=== PATIENT | female | born 1970 | race African-American/Black ===

== ENCOUNTER → 2016-08-31 | Outpatient (CLI) | payer BC ==
[~2016-08-31] MED LIST: ADAP0.1C5 TOP; FING1CAP PO; MINO100C22 PO; MULTTAB58 PO
--- NOTE | 2016-08-31 13:34 | MAMMOGRAPHY REPORT ---
BILATERAL DIGITAL SCREENING MAMMOGRAM TOMOSYNTHESIS WITH CAD: 08/31/2016 CLINICAL HISTORY: Routine screening. Patient has no complaints. TECHNIQUE: Breast tomosynthesis in addition to standard 2D mammography was performed. Current study was also evaluated with a Computer Aided Detection (CAD) system. COMPARISON: Comparison is made to exams dated: 08/28/2015 mammogram, 08/15/2012 mammogram, 07/24/2014 m ammogram, 04/24/2015 mammogram, 03/19/2015 ultrasound, and 03/03/2015 ultrasound - [facility]. BREAST COMPOSITION: There are scattered areas of fibroglandular density in both breasts. There are mild involutional changes in the breasts compared to prior mammograms. FINDINGS: There are stable bilateral benign-appearing coarse and round calcifications. Expected arc hitectural distortion in the 9:00 right breast from previous abscess incision and drainage. No new suspicious mass, architectural distortion or cluster of suspicious microcalcifications is seen. IMPRESSION: ACR BI-RADS CATEGORY 1: NEGATIVE There is no mammographic evidence of malignancy. A 1 year screening mammogram is recommended. The p atient will receive written notification of the results. Approximately 10% of breast cancers are not detected with mammography. A negative mammographic repor t should not delay biopsy if a clinically suggestive mass is present. Sarah Rowe M.D. ay/:08/31/2016 13:06:47 Frit Mixer And Burner: Gali BARBOZA)([place]), [facility] letter sent: Normal 1/2 BI-RADS Code: ACR BI-RADS Category 1: Negative
== END | disposition home or self-care (01) ==
LOC: C.MAMM 07:11
PROVIDERS: ATTEND Family Medicine
DX: Z12.31 Encounter for screening mammogram for malignant neoplasm of breast (principal)

== ENCOUNTER → 2017-01-27 | Day surgery (SDC) | payer BC ==
[2017-01-23 10:09] VITALS: BMI 38.0
[~2017-01-27] VITALS: Ht 162.6 cm; Wt 100.0 kg
[~2017-01-27] MED LIST changes: +LIDOCAINE HCL 2% 2 ML VIAL (20MG/ML) ONE; +PROPOFOL IV EMULSION 10 MG/ML 20 ML VIAL IV ONE
[2017-01-27 14:16] VITALS: Ht 162.6 cm; Wt 100.0 kg
--- NOTE | 2017-01-27 15:00 | Endo History and Physical ---
History & Physical Date of Service: Jan 27, 2017. Chief Complaint: hx Barretts esophagus Referring Physician: Dr. Escobar History of Present Illness For EGD Past Surgical History Hx Cardiac Surgery: No Hx Internal Defibrillator: No Hx Pacemaker: No Hx Abdominal Surgery: Yes (KIKE, ERAN, OVARIAN TUMOR REMOVAL, APPY, TUBAL LIGATION) Hx of Implantable Prosthesis: No Hx Post-Op Nausea and Vomiting: Yes Hx Cancer Surgery: No Hx Thoracic Surgery: No Hx Orthopedic: No Hx Urinary Tract Surgery: No Family History None Social History Smoking Status: Never Smoker Hx Substance Use: No Hx Alcohol Use: Yes (OCCASIONALLY) Allergies Coded Allergies: Erythromycin (Verified Allergy, Unknown, RASH, 01/27/17) Latex1 -Allergic Contact Dermititis (Verified Allergy, Unknown, 01/27/17) Ethinyl Estradiol (Verified Adverse Reaction, Intermediate, ORAL CONTRACEPTIVES-BLOOD CLOTS, 01/27/17) Norgestrel (Verified Adverse Reaction, Intermediate, ORAL CONTRACEPTIVES- BLOOD CLOTS, 01/27/17) Aspirin (Verified Adverse Reaction, Mild, DIZZINESS, RINGING IN EARS, 01/27) Uncoded Allergies: HORSES (Allergy, Severe, ANAPHYLAXIS, 12/26/15) STRAWBERRIES (Allergy, Severe, ANAPHYLAXIS, 12/26/15) Current Medications Reported Home Medications Medications Dose Route/Sig Max Daily Dose Days Date Category Dose Instructions Minocin (Minocycline HCl) 100 Mg Cap 100 Mg PO BID 12/26/15 Reported Differin (Adapalene) 0.1 % Cre 1 Appln TOP HS 30 12/26/15 Reported APPLY TO FACE/CHEST Gilenya (Fingolimod Hcl) 0.5 Mg Cap 0.5 Mg PO QAM 07/01/15 Reported Multivitamin (Multiple Vitamin) 1 Tab Tab 1 Tab PO QAM 05/02/12 Reported Vital Signs Weight (Kilograms): 100.00 Height (Feet): 5 Height (Inches): 4 Date Time Temp Pulse Resp B/P (MAP) Pulse Ox O2 Delivery O2 Flow Rate FiO2 01/27/17 14:23 36.6 64 20 162/105 (124) 98 Room Air Physical Exam General Appearance: + obese Respiratory/Chest: Respiratory effort: no dyspnea Cardiovascular: Heart Auscultation: RRR Abdomen: Inspection & Palpation: soft Assessment and Plan Montgomery's for EGD
--- NOTE | 2017-01-27 15:12 | Discharge Instructions ---
Endoscopy Patient Instructions Date / Procedure(s) Performed Jan 27, 2017. EGD Allergy Information Coded Allergies: Erythromycin (Verified Allergy, Unknown, RASH, 01/27/17) Latex1 -Allergic Contact Dermititis (Verified Allergy, Unknown, 01/27/17) Ethinyl Estradiol (Verified Adverse Reaction, Intermediate, ORAL CONTRACEPTIVES-BLOOD CLOTS, 01/27/17) Norgestrel (Verified Adverse Reaction, Intermediate, ORAL CONTRACEPTIVES- BLOOD CLOTS, 01/27/17) Aspirin (Verified Adverse Reaction, Mild, DIZZINESS, RINGING IN EARS, 01/27) Uncoded Allergies: HORSES (Allergy, Severe, ANAPHYLAXIS, 12/26/15) STRAWBERRIES (Allergy, Severe, ANAPHYLAXIS, 12/26/15) Discharge Date / Findings Jan 27, 2017. Hiatal hernia Medication Instructions Restart Stopped Medication(s): resume meds Reported Home Medications Medications Dose Route/Sig Max Daily Dose Days Date Category Dose Instructions Minocin (Minocycline HCl) 100 Mg Cap 100 Mg PO BID 12/26/15 Reported Differin (Adapalene) 0.1 % Cre 1 Appln TOP HS 30 12/26/15 Reported APPLY TO FACE/CHEST Gilenya (Fingolimod Hcl) 0.5 Mg Cap 0.5 Mg PO QAM 07/01/15 Reported Multivitamin (Multiple Vitamin) 1 Tab Tab 1 Tab PO QAM 05/02/12 Reported Provider Instructions Activity Restrictions - No exercising or heavy lifting for 24 hours. - Do not drink alcohol the day of the procedure. - Do not drive a car or operate machinery until the day after the procedure. - Do not make any important decisions or sign important papers in 24 hours after the procedure. Following Day: - Return to full activity which may include returning to work/school. Diet Start your diet with liquids and light foods (jello, soup, juice, toast). Then eat your usual diet if not nauseated. Treatment For Common After Affects For mild abdominal pain, bloating, or excessive gas: - Rest - Eat lightly - Lie on right side Follow-Up Information Follow-up with Dr. Escobar as scheduled Anesthesia Information What You Should Know You have had a procedure that required some medicine to reduce anxiety and discomfort. This treatment is called moderate sedation. After receiving the treatment, you may be sleepy, but you will be able to breathe on your own. The effects of the treatment may last for several hours. Follow these instructions along with Activity/Diet recommendations noted above: * Do NOT do anything where dizziness or clumsiness would be dangerous. * Rest quietly at home today, then you can be up and about tomorrow. * Have a responsible person stay with you the rest of today. * You may have had an I.V. today. If so, you may take the dressing off later today. Recommendations Call your doctor if: * Trouble breathing * Continuous vomiting for more than 24 hours * Temperature above 101 degrees * Severe abdominal pain or bloating * Pain not relieved by pain medicine ordered * There is increased drainage or redness from any incision * A large amount of rectal bleeding greater than 2-3 tablespoons. (If you had a polyp/s removed or have hemorrhoids, a small amount of blood - from the rectum is to be expected.) * You have any unanswered questions or concerns. IN THE EVENT OF A SERIOUS EMERGENCY, GO TO THE NEAREST EMERGENCY ROOM Your discharge instructions were prepared by provider Joseph Garcia. Patient Instructions Signature Page Jason Harkins Patient (or Guardian) Signature/Date: I have read and understand the instructions given to me by my caregivers. Caregiver/RN/Doctor Signature/Date: The above-named patient and/or guardian has received patient instructions on this date. + Original Patient Signature Page (only) stays with chart. Please make copy for patient.
--- NOTE | 2017-01-27 15:15 | GI REPORT ---
Procedure Date: 01/27/2017 2:55 PM Procedure: Upper GI endoscopy Indications: Suspected Montgomery's esophagus Medicines: Propofol total dose 150 mg IV, Lidocaine 60 mg IV Complications: No immediate complications. Estimated Blood Loss: Estimated blood loss: none. Procedure: Pre-Anesthesia Assessment: - Prior to the procedure, a History and Physical was performed, and patient medications, allergies and sensitivities were reviewed. The patient's tolerance of previous anesthesia was reviewed. - The risks and benefits of the procedure and the sedation options and risks were discussed with the patient. All questions were answered and informed consent was obtained. After obtaining informed consent, the endoscope was passed under direct vision. Throughout the procedure, the patient's blood pressure, pulse, and oxygen saturations were monitored continuously. The scope was introduced through the mouth, and advanced to the second part of duodenum. The patient tolerated the procedure well. Findings: A small hiatus hernia was present. No findings to suggest Montgomery's. The entire examined stomach was normal. The examined duodenum was normal. Impression: - Small hiatus hernia. - Normal stomach. - Normal examined duodenum. - No specimens collected. Recommendation: - Discharge patient to home (ambulatory). - Continue present medications. - Return to primary care physician PRN. Joseph Garcia M.D. Joseph Garcia MD 01/27/2017 3:14:40 PM This report has been signed electronically. Note Initiated On: 01/27/2017 2:55 PM I attest to the content of the Intraoperative Record and orders documented therein, exceptions below
--- NOTE | 2017-01-27 15:26 | Anesthesiology Progress Note ---
Anesthesia Post Op Note Date & Time Jan 27, 2017 at 15:26 Vital Signs Pain Intensity: 0 Vital Signs Past 12 Hours Date Time Temp Pulse Resp B/P (MAP) Pulse Ox O2 Delivery O2 Flow Rate FiO2 01/27/17 14:23 36.6 64 20 162/105 (124) 98 Room Air Notes Mental Status: alert / awake / arousable, participated in evaluation Pt Amnestic to Procedure: Yes Nausea / Vomiting: adequately controlled Pain: adequately controlled Airway Patency, RR, SpO2: stable & adequate BP & HR: stable & adequate Hydration State: stable & adequate Anesthetic Complications: no major complications apparent
[2017-01-27 15:50] VITALS: BP 137/83; PULSE 57; O2SAT 99
== END | disposition home or self-care (01) ==
LOC: C.GI 11:16
PROVIDERS: ATTEND Internal Medicine Gastroenterology
DX: K22.70 Barrett's esophagus without dysplasia (principal); K44.9 Diaphragmatic hernia without obstruction or gangrene; Z90.49 Acquired absence of other specified parts of digestive tract; Z90.710 Acquired absence of both cervix and uterus

== ENCOUNTER → 2017-06-26 | Outpatient (CLI) | payer BC ==
[~2017-06-26] MED LIST changes: -LIDOCAINE HCL 2% 2 ML VIAL (20MG/ML) ONE; -PROPOFOL IV EMULSION 10 MG/ML 20 ML VIAL IV ONE
--- NOTE | 2017-06-27 17:10 | EEG Procedure Note ---
EEG Procedure Note Date of Service Jun 26, 2017. Start / End Times Start Time: 2:34 PM End Time: 2:55 PM Referring Physician Joy Landaverde History This is a 46-year-old female with syncopal spells. EEG for further evaluation of possible seizure etiology. Home Medication List Scheduled Adapalene (Differin), 1 APPLN TOP HS Fingolimod Hcl (Gilenya), 0.5 MG PO QAM Minocycline (Minocin), 100 MG PO BID Multiple Vitamin (Multivitamin), 1 TAB PO QAM Description This is a 21 electrode EEG with a single channel dedicated to limited EKG. The electrodes were placed in accordance with the International 10-20 system. At the start of the recording the patient was in an awake state. Background was well organized and composed of symmetric mixed alpha and beta frequencies. There was a symmetric well-formed moderate amplitude 9-10 Hz posterior dominant rhythm that was reactive to eye opening and closure. Hyperventilation was not done. Intermittent photic stimulation at various frequencies produced no abnormalities. Sleep was indicated by vertex waves and symmetric sleep spindles. Interpretation This is a normal awake and asleep routine EEG. There was no electrographic seizures or epileptiform discharges. Clinical Correlation A normal EEG does not rule out epilepsy if there is a strong clinical suspicion.
== END | disposition home or self-care (01) ==
LOC: C.NEUR 14:23
PROVIDERS: ATTEND Family Medicine
DX: R55 Syncope and collapse (principal)

== ENCOUNTER → 2017-09-07 | Outpatient (CLI) | payer OTHER ==
--- NOTE | 2017-09-07 15:17 | MAMMOGRAPHY REPORT ---
BILATERAL DIGITAL SCREENING MAMMOGRAM TOMOSYNTHESIS WITH CAD: 09/07/2017 CLINICAL HISTORY: Routine screening. Patient has no complaints. TECHNIQUE: Breast tomosynthesis in addition to standard 2D mammography was performed. Current study was also evaluated with a Computer Aided Detection (CAD) system. COMPARISON: Comparison is made to exams dated: 08/31/2016 mammogram, 08/28/2015 mammogram, 07/24/2014 m ammogram, 08/15/2012 mammogram, 08/10/2011 mammogram, and 08/31/2000 mammogram - [facility]. BREAST COMPOSITION: There are scattered areas of fibroglandular density in both breasts. FINDINGS: No suspicious masses, calcifications, or areas of architectural distortion are noted in ei ther breast. There has been no significant interval change compared to prior exams. Scattered bilater al benign-appearing calcifications are not significantly changed. There are stable postsurgical hernandez ges in the right breast from prior abscess drainages, with linear scar markers denoting scars on the right lateral breast. IMPRESSION: ACR BI-RADS CATEGORY 2: BENIGN There is no mammographic evidence of malignancy. A 1 year screening mammogram is recommended. The pa tient will receive written notification of the results. Approximately 10% of breast cancers are not detected with mammography. A negative mammographic report should not delay biopsy if a clinically suggestive mass is present. Julianne Curtis M.D. ah/:09/07/2017 08:14:30 Oyster Grader: Berna YEPEZ([place])([place]), [facility] letter sent: Normal 1/2 BI-RADS Code: ACR BI-RADS Category 2: Benign
== END | disposition home or self-care (01) ==
LOC: C.MAMM 07:48
PROVIDERS: ATTEND Family Medicine
DX: Z12.31 Encounter for screening mammogram for malignant neoplasm of breast (principal)

== ENCOUNTER 2017-11-02 13:05 | Emergency (ER) | payer OTHER ==
[~2017-11-02] VITALS: Ht 162.6 cm; Wt 109.9 kg
[2017-11-02 13:08] VITALS: TEMP 36.6; Ht 162.6 cm; Wt 109.9 kg
[2017-11-02 13:42] LABS: BASO % 0.2 %; BASO ABS # 0.02 K/uL (0-0.2); EOS % 1.5 %; EOS ABS # 0.13 K/uL (0-0.5); HEMATOCRIT 37.1 % (37-47); HEMOGLOBIN 12.9 g/dL (12.0-16.0); IG# 0.01 K/uL (0.00-0.02); LYMPH ABS # 2.89 K/uL (1.2-3.4); MEAN CELL VOLUME 82.6 fL (80-100); MEAN CORPUSCULAR HEMOGLOBIN 28.7 pg (25-34); MEAN CORPUSCULAR HGB CONC 34.8 g/dl (32-36); MEAN PLATELET VOLUME 10.9 fL (7.4-10.4); MONO % 8.8 %; MONO ABS # 0.75 K/uL (0.11-0.59); NEUT % 55.4 %; NEUT ABS # 4.71 K/uL (1.4-6.5); PLATELET COUNT 318 K/uL (130-400); RED CELL DISTRIBUTION WIDTH CV 13.5 % (11.5-14.5); WHITE BLOOD COUNT 8.51 K/uL (4.8-10.8)
[2017-11-02] MEDS ORDERED: CHOL1TAB42 PO (13:48)
[2017-11-02] MEDS ORDERED: WLLXL300 PO (13:48)
[2017-11-02 14:02] LABS: ALBUMIN 3.4 gm/dl (3.4-5.0); ALT/SGPT 22 U/L (12-78); AST/SGOT 15 U/L (15-37); BLOOD UREA NITROGEN 9 mg/dl (7-18); CALCIUM 8.6 mg/dl (8.5-10.1); CARBON DIOXIDE 25 mmol/L (21-32); CREATININE 1.05 mg/dl (0.60-1.20); GLUCOSE 91 mg/dl (70-99); LIPASE 388 U/L (73-393); POTASSIUM 3.8 mmol/L (3.5-5.1); SODIUM 137 mmol/L (136-145)
[2017-11-02 14:07] LABS: ALKALINE PHOSPHATASE 55 U/L (45-117); CKMB < 0.5 ng/ml (0.5-3.6); TOTAL PROTEIN 7.2 gm/dl (6.4-8.2)
[2017-11-02 14:10] LABS: PTT PATIENT 27.1 SECONDS (21.0-31.0)
--- NOTE | 2017-11-02 14:16 | DIAGNOSTIC IMAGING REPORT ---
CHEST ONE VIEW PORTABLE CLINICAL HISTORY: Atypical chest pain, fever, sepsis. Numbness. COMPARISON STUDY: 12/26/2015 FINDINGS: The cardiac and mediastinal contours are normal. There is no evidence of focal pulmonary consolidation. There is no evidence of failure. No pleural effusions are visualized.[ IMPRESSION: No active disease in the chest. Electronically signed by: Britton López M.D. 11/02/2017 2:15 PM Dictated Date/Time: 11/02/2017 2:14 PM
--- NOTE | 2017-11-02 14:23 | EMERGENCY ROOM VISIT NOTE ---
History Report prepared by Lise: Shabnam Downs Under the Supervision of: Dr. Hemal Oh D.O. First contact with patient: 13:16 Chief Complaint: CHEST PAIN Stated Complaint: CHEST PAIN, NUMBNESS History of Present Illness The patient is a 47 year old female who presents to the Emergency Room with complaints of an episode of chest pressure occurring just prior to arrival. The patient reports numbness starting in left chest radiating down her left arm. With the onset of her symptoms, the patient states she felt like she couldn't breath. She states those symptoms of feeling of being unable to breath have since resolved. She denies any recent illness or swelling to her legs. The patient states she feels very anxious. The patient states she was on a phone call for a work related issue when her symptoms began. The patient has a history of MS and anxiety. She is on anxiety medication. She states she has never had symptoms like this before. Source of History: patient Onset: just prior to arrival Position: chest Quality: pressure Timing: other (episode) Associated Symptoms: + chest pain, + SOB, + numbness Review of Systems See HPI for pertinent positives & negatives. A total of 10 systems reviewed and were otherwise negative. Past Medical & Surgical Medical Problems: (1) Anxiety (2) Multiple sclerosis Family History Patient reports no known family medical history. Social History Smoking Status: Never Smoker Alcohol Use: occasionally Marital Status: single Occupation Status: employed Current/Historical Medications Scheduled Adapalene (Differin), 1 APPLN TOP HS Bupropion HCl (Bupropion HCl Xl), 300 MG PO DAILY Cholecalciferol (Vitamin D), 5,000 UNITS PO DAILY Fingolimod Hcl (Gilenya), 0.5 MG PO QAM Multiple Vitamin (Multivitamin), 1 TAB PO QAM Allergies Coded Allergies: Erythromycin (Verified Allergy, Unknown, RASH, 11/02/17) Latex1 -Allergic Contact Dermititis (Verified Allergy, Unknown, 11/02/17) Ethinyl Estradiol (Verified Adverse Reaction, Intermediate, ORAL CONTRACEPTIVES-BLOOD CLOTS, 11/02/17) Norgestrel (Verified Adverse Reaction, Intermediate, ORAL CONTRACEPTIVES- BLOOD CLOTS, 11/02/17) Aspirin (Verified Adverse Reaction, Mild, DIZZINESS, RINGING IN EARS, 11/02) Uncoded Allergies: HORSES (Allergy, Severe, ANAPHYLAXIS, 12/26/15) STRAWBERRIES (Allergy, Severe, ANAPHYLAXIS, 12/26/15) Physical Exam Vital Signs Date Time Temp Pulse Resp B/P (MAP) Pulse Ox O2 Delivery O2 Flow Rate FiO2 11/02/17 13:26 69 11/02/17 13:17 Room Air 11/02/17 13:08 36.6 63 18 155/87 97 Room Air Physical Exam CONSTITUTIONAL/VITAL SIGNS: Reviewed / noted above. GENERAL: Non-toxic in appearance. INTEGUMENTARY: Warm, dry, and Or[place]. HEAD: Normocephalic. EYES: without scleral icterus or trauma. ENT/OROPHARYNX: clear and moist. LYMPHADENOPATHY/NECK: Is supple without lymphadenopathy or meningismus. RESPIRATORY: Lungs clear and equal. CARDIOVASCULAR: Regular rate and rhythm. GI/ABDOMEN: Soft and nontender. No organomegaly or pulsatile mass. No rebound or guarding. Normal bowel sounds. EXTREMITIES: Warm and well perfused. BACK: No CVA tenderness. NEUROLOGICAL: Intact without focal deficits. PSYCHIATRIC: normal affect. MUSCULOSKELETAL: Normally developed with good muscle tone. Medical Decision & Procedures ER Provider Diagnostic Interpretation: Radiology results as stated below per my review and radiologist interpretation: CHEST ONE VIEW PORTABLE FINDINGS: The cardiac and mediastinal contours are normal. There is no evidence of focal pulmonary consolidation. There is no evidence of failure. No pleural effusions are visualized.[ IMPRESSION: No active disease in the chest. Electronically signed by: Britton López M.D. Laboratory Results 11/02/17 13:30 Red Blood Count 4.49, Mean Corpuscular Volume 82.6, Mean Corpuscular Hemoglobin 28.7, Mean Corpuscular Hemoglobin Concent 34.8, Mean Platelet Volume 10.9, Neutrophils (%) (Auto) 55.4, Lymphocytes (%) (Auto) 34.0, Monocytes (%) (Auto) 8.8, Eosinophils (%) (Auto) 1.5, Basophils (%) (Auto) 0.2, Neutrophils # (Auto) 4.71, Lymphocytes # (Auto) 2.89, Monocytes # (Auto) 0.75, Eosinophils # (Auto) 0.13, Basophils # (Auto) 0.02 11/02/17 13:30 Test 11/02/17 13:30 White Blood Count 8.51 K/uL (4.8-10.8) Red Blood Count 4.49 M/uL (4.2-5.4) Hemoglobin 12.9 g/dL (12.0-16.0) Hematocrit 37.1 % (37-47) Mean Corpuscular Volume 82.6 fL (80-100) Mean Corpuscular Hemoglobin 28.7 pg (25-34) Mean Corpuscular Hemoglobin Concent 34.8 g/dl (32-36) Platelet Count 318 K/uL (130-400) Mean Platelet Volume 10.9 fL (7.4-10.4) Neutrophils (%) (Auto) 55.4 % Lymphocytes (%) (Auto) 34.0 % Monocytes (%) (Auto) 8.8 % Eosinophils (%) (Auto) 1.5 % Basophils (%) (Auto) 0.2 % Neutrophils # (Auto) 4.71 K/uL (1.4-6.5) Lymphocytes # (Auto) 2.89 K/uL (1.2-3.4) Monocytes # (Auto) 0.75 K/uL (0.11-0.59) Eosinophils # (Auto) 0.13 K/uL (0-0.5) Basophils # (Auto) 0.02 K/uL (0-0.2) RDW Standard Deviation 41.0 fL (36.4-46.3) RDW Coefficient of Variation 13.5 % (11.5-14.5) Immature Granulocyte % (Auto) 0.1 % Immature Granulocyte # (Auto) 0.01 K/uL (0.00-0.02) Prothrombin Time 11.0 SECONDS (9.0-12.0) Prothromb Time International Ratio 1.0 (0.9-1.1) Activated Partial Thromboplast Time 27.1 SECONDS (21.0-31.0) Partial Thromboplastin Ratio 1.0 Anion Gap 6.0 mmol/L (3-11) Est Creatinine Clear Calc Drug Dose 81.2 ml/min Estimated GFR () 73.8 Estimated GFR (Non- 63.6 BUN/Creatinine Ratio 8.9 (10-20) Calcium Level 8.6 mg/dl (8.5-10.1) Total Bilirubin 0.5 mg/dl (0.2-1) Direct Bilirubin < 0.1 mg/dl (0-0.2) Aspartate Amino Transf (AST/SGOT) 15 U/L (15-37) Alanine Aminotransferase (ALT/SGPT) 22 U/L (12-78) Alkaline Phosphatase 55 U/L (45-117) Total Creatine Kinase 96 U/L (26-192) Creatine Kinase MB < 0.5 ng/ml (0.5-3.6) Creatine Kinase MB Ratio (0-3.0) Troponin I < 0.015 ng/ml (0-0.045) Total Protein 7.2 gm/dl (6.4-8.2) Albumin 3.4 gm/dl (3.4-5.0) Lipase 388 U/L (73-393) Laboratory results as stated above per my review. ECG Per My Interpretation Indication: chest pain Rate (beats per minute): 61 Rhythm: normal sinus Findings: no ectopy, other (no ST elevation) ED Course 1323: Previous medical records were reviewed. The patient was evaluated in room B7. A complete history and physical examination was performed. 1425: On reevaluation, the patient is resting comfortably. I discussed the results and findings with the patient. She verbalized agreement of the treatment plan. She was discharged home. Medical Decision the differential was considered includes acute myocardial infarction, acute coronary syndrome, myocarditis, pericarditis, pericardial effusions /tamponade, esophageal perforation, thoracic aortic dissection, pulmonary embolism, pneumonia, pneumothorax, pancreatitis, shingles, acute cholecystitis, perforated abdominal viscus. This is a 47-year-old female who presents to the ED with a chief complaint of chest pain/pressure and numbness in the left chest. The patient reports that the symptoms involve the left arm. She states that she was on a phone call that was somewhat upsetting at work. She was crying a lot and could not breathe. She felt anxious. She does have a history of anxiety. The patient has stable vital signs. Physical exam was unremarkable. She does appear somewhat anxious. Laboratory studies include a normal EKG. Chest x-ray did not show acute process. CBC, chemistry panel, lipase and cardiac enzymes were normal. The patient was told the results of the test. She did not require specific treatment here. She is felt to be stable for discharge. Medication Reconcilliation Current Medication List: was personally reviewed by me Blood Pressure Screening Patient's blood pressure: Elevated blood pressure Blood pressure disposition: Referred to PCP Impression Primary Impression: Left sided chest pain Additional Impression: Anxiety Scribe Attestation The scribe's documentation has been prepared under my direction and personally reviewed by me in its entirety. I confirm that the note above accurately reflects all work, treatment, procedures, and medical decision making performed by me. Departure Information Dispostion Home / Self-Care Referrals Joy Escobar M.D. (PCP) Forms Call Back Authorization, HOME CARE DOCUMENTATION FORM, IMPORTANT VISIT INFORMATION Patient Instructions My [facility] Additional Instructions Follow-up with your doctor for further care and evaluation in 1-6 days. Return to the emergency department for worsening or new symptoms or any concerns. You have been examined and treated today on an emergency basis only. This is not a substitute for, or an effort to provide, complete comprehensive medical care. It is impossible to recognize and treat all injuries or illnesses in a single emergency department visit. It is therefore important that you follow up closely with your doctor. Call as soon as possible for an appointment. Problem Qualifiers
[2017-11-02 15:03] VITALS: BP 136/87; PULSE 65; O2SAT 97
== END 2017-11-02 15:04 | disposition home or self-care (01) ==
LOC: C.EDB 13:06
DX: R07.89 Other chest pain (principal); F41.9 Anxiety disorder, unspecified; G35 Multiple sclerosis; Z88.1 Allergy status to other antibiotic agents; Z88.8 Allergy status to other drugs, medicaments and biological substances; Z88.6 Allergy status to analgesic agent; Z91.040 Latex allergy status; Z91.018 Allergy to other foods; Z91.09 Other allergy status, other than to drugs and biological substances; Z79.899 Other long term (current) drug therapy